=== PATIENT | female | born 1970 | race Caucasian/White ===

== ENCOUNTER 2018-09-23 10:07 | Inpatient (IN) | payer OTHER ==
[2018-09-23 11:55] LABS: ADD MAN DIFF? NO
[2018-09-23 12:00] LABS: BASOPHILS % 0.3 % (0.0-2.0); EOSINOPHILS # 0.1 10^3/ul (0.0-0.5); HEMATOCRIT 36.9 % (37.0-47.0); HEMOGLOBIN 12.5 g/dl (12.0-16.0); LYMPHOCYTES # 2.7 10^3/ul (0.8-2.9); LYMPHOCYTES % 34.9 % (15.0-51.0); MEAN CORPUSCULAR HEMOGLOBIN 32.6 pg (29.0-33.0); MEAN CORPUSCULAR HGB CONC 33.9 g/dl (32.0-37.0); MEAN CORPUSCULAR VOLUME 96.1 fl (82.0-101.0); MEAN PLATELET VOLUME 9.1 fl (7.4-10.4); MONOCYTE # 0.4 10^3/ul (0.3-0.9); MONOCYTES % 5.2 % (0.0-11.0); NEUTROPHIL # 4.5 10^3/ul (1.6-7.5); NEUTROPHILS % 58.3 % (39.0-77.0); PLATELET COUNT 273 10^3/UL (140-415); RED BLOOD COUNT 3.84 10^6/ul (4.20-5.40)
[2018-09-23 12:00] LABS: WHITE BLOOD COUNT 7.7 10^3/ul (4.8-10.8)
[2018-09-23 12:28] LABS: ALANINE AMINOTRANSFERASE 27 IU/L (13-69); ALKALINE PHOSPHATASE 55 IU/L (42-121); ANION GAP 7 (5-13); ASPARTATE AMINO TRANSFERASE 25 IU/L (15-46); BILIRUBIN,INDIRECT 1.2 mg/dl (0-1.1); BILIRUBIN,TOTAL 1.2 mg/dl (0.2-1.3); BLOOD UREA NITROGEN 13 mg/dl (7-20); CALCIUM 9.2 mg/dl (8.4-10.2); CARBON DIOXIDE 26 mmol/L (21-31); CHLORIDE 107 mmol/L (97-110); CREATININE 0.61 mg/dl (0.44-1.00); Estimated GFR > 60 mL/min (>60); GLUCOSE 101 mg/dl (70-220); SODIUM 140 mmol/L (135-144)
[2018-09-23 12:31] LABS: INR 0.92; PROTIME 12.5 Sec (11.9-14.9)
[2018-09-23 12:32] LABS: PARTIAL THROMBOPLASTIN TIME 27.2 Sec (23.0-35.0)
[2018-09-23] MEDS ORDERED: ROPIVACAINE 0.5 % 30 ML VIAL (13:02)
[2018-09-23] MEDS ORDERED: MIDAZOLAM 1 MG/ML 2 ML INJ (13:22)
[2018-09-23] MEDS ORDERED: PROPOFOL 20 ML (13:22)
[2018-09-23] MEDS ORDERED: CEFAZOLIN 1 GM INJ (13:22)
[2018-09-23] MEDS ORDERED: ONDANSETRON 4 MG INJ ×2 (13:23→15:18)
[2018-09-23] MEDS ORDERED: METOCLOPRAMIDE 10 MG INJ (13:23)
[2018-09-23] MEDS: CEFAZOLIN 2 GM/50 ML (PMX) 50 ML IVPB ×2 (13:39→21:12)
[2018-09-23] MEDS ORDERED: HYDROmorphONE 2 MG/ML SYG (13:46)
[2018-09-23] MEDS: POLYMYXIN/BACITRACIN 1L IRRIG IRR ×2 (13:49→15:00)
[2018-09-23] MEDS ORDERED: EPHEDrine 25 MG/5 ML SYG (14:04)
[2018-09-23] MEDS ORDERED: ROCURONIUM 50 MG INJ ×2 (14:04→14:11)
[2018-09-23] MEDS ORDERED: KETOROLAC 30 MG INJ (14:57)
[2018-09-23] MEDS: BUPIVACAINE 0.5% (SDV) 30 ML INJ (14:59)
[2018-09-23] MEDS ORDERED: CEFAZOLIN 2 GM/50 ML (PMX) 50 ML IVPB (15:00)
[2018-09-23] MEDS ORDERED: MEPERIDINE 25 MG INJ (15:18)
[2018-09-23] MEDS ORDERED: FENTAnyl 50 MCG/ML VIAL (15:18)
[2018-09-23] MEDS: FENTAnyl 50 MCG/ML VIAL IV ×3 (15:26→16:13)
[2018-09-23] MEDS: MEPERIDINE 25 MG INJ IV (15:26)
[2018-09-23] MEDS: ONDANSETRON 4 MG INJ IV (15:26)
[2018-09-23 15:28] LABS: ADD MAN DIFF? NO
[2018-09-23] MEDS: SOD CHLORIDE 0.9% 1,000 ML IV (15:29)
[2018-09-23 15:30] LABS: WHITE BLOOD COUNT 10.9 10^3/ul (4.8-10.8)
[2018-09-23 15:30] LABS: BASOPHILS % 0.2 % (0.0-2.0); EOSINOPHILS # 0.1 10^3/ul (0.0-0.5); EOSINOPHILS % 0.8 % (0.0-7.0); HEMATOCRIT 37.9 % (37.0-47.0); HEMOGLOBIN 12.4 g/dl (12.0-16.0); LYMPHOCYTES # 3.3 10^3/ul (0.8-2.9); LYMPHOCYTES % 30.6 % (15.0-51.0); MEAN CORPUSCULAR HEMOGLOBIN 32.5 pg (29.0-33.0); MEAN CORPUSCULAR HGB CONC 32.7 g/dl (32.0-37.0); MEAN CORPUSCULAR VOLUME 99.2 fl (82.0-101.0); MEAN PLATELET VOLUME 9.2 fl (7.4-10.4); MONOCYTE # 0.6 10^3/ul (0.3-0.9); MONOCYTES % 5.1 % (0.0-11.0); NEUTROPHIL # 6.9 10^3/ul (1.6-7.5); PLATELET COUNT 269 10^3/UL (140-415); RED BLOOD COUNT 3.82 10^6/ul (4.20-5.40)
[2018-09-23] MEDS ORDERED: DIPHENHYDRAMINE 50 MG INJ IV (15:30)
[2018-09-23] MEDS ORDERED: EPHEDrine 25 MG/5 ML SYG IV (15:30)
[2018-09-23] MEDS ORDERED: FENTAnyl 50 MCG/ML VIAL IV (15:30)
[2018-09-23] MEDS ORDERED: HYDROmorphONE 1 MG/5 ML IV SYRINGE IV (15:30)
[2018-09-23] MEDS: HYDROmorphONE 1 MG/5 ML IV SYRINGE IV ×3 (15:42→16:14)
[2018-09-23 15:49] LABS: ALANINE AMINOTRANSFERASE 26 IU/L (13-69); ALBUMIN 3.6 g/dl (3.3-4.9); ALBUMIN/GLOBULIN RATIO 0.94; ALKALINE PHOSPHATASE 53 IU/L (42-121); ANION GAP 8 (5-13); ASPARTATE AMINO TRANSFERASE 24 IU/L (15-46); BILIRUBIN,INDIRECT 0.8 mg/dl (0-1.1); BILIRUBIN,TOTAL 0.8 mg/dl (0.2-1.3); BLOOD UREA NITROGEN 12 mg/dl (7-20); CARBON DIOXIDE 24 mmol/L (21-31); CHLORIDE 110 mmol/L (97-110); Estimated GFR > 60 mL/min (>60); GLUCOSE 114 mg/dl (70-220); POTASSIUM 3.8 mmol/L (3.5-5.1); SODIUM 142 mmol/L (135-144); TOTAL PROTEIN 7.4 g/dl (6.1-8.1)
[2018-09-23 15:54] LABS: CALCIUM 8.3 mg/dl (8.4-10.2)
[2018-09-23] MEDS ORDERED: DOCUSATE SODIUM 100 MG CAP PO (17:00)
[2018-09-23] MEDS: LACTATED RINGER'S 1,000 ML IV (17:22)
[2018-09-23] MEDS: morphine 2 MG INJ IV (17:23)
[2018-09-23] MEDS: HYDROCODONE/APAP (5/325) TAB PO (18:20)
[2018-09-23] MEDS: GABAPENTIN 300 MG CAP PO (20:57)
[2018-09-23] MEDS: DOCUSATE SODIUM 100 MG CAP PO (20:58)
[2018-09-23] MEDS: morphine 4 MG/ML VIAL IV (21:03)
[2018-09-23] MEDS: DULOXETINE 30 MG CAP DR PO (21:06)
[2018-09-24] MEDS: morphine 4 MG/ML VIAL IV ×3 (00:19→06:32)
[2018-09-24] MEDS: LACTATED RINGER'S 1,000 ML IV ×3 (00:59→17:26)
[2018-09-24] MEDS: HYDROCODONE/APAP (5/325) TAB PO ×2 (01:11→07:35)
[2018-09-24] MEDS: ACETAMINOPHEN 325 MG TAB PO (03:02)
[2018-09-24] MEDS: CEFAZOLIN 2 GM/50 ML (PMX) 50 ML IVPB ×2 (04:31→13:09)
[2018-09-24 05:40] LABS: ADD MAN DIFF? NO
[2018-09-24 05:43] LABS: BASOPHILS % 0.1 % (0.0-2.0); EOSINOPHILS # 0.1 10^3/ul (0.0-0.5); EOSINOPHILS % 0.9 % (0.0-7.0); HEMATOCRIT 33.9 % (37.0-47.0); HEMOGLOBIN 10.9 g/dl (12.0-16.0); LYMPHOCYTES # 2.5 10^3/ul (0.8-2.9); LYMPHOCYTES % 30.5 % (15.0-51.0); MEAN CORPUSCULAR HGB CONC 32.2 g/dl (32.0-37.0); MEAN CORPUSCULAR VOLUME 99.4 fl (82.0-101.0); MEAN PLATELET VOLUME 9.6 fl (7.4-10.4); MONOCYTE # 0.6 10^3/ul (0.3-0.9); MONOCYTES % 6.9 % (0.0-11.0); NEUTROPHILS % 61.4 % (39.0-77.0); PLATELET COUNT 272 10^3/UL (140-415); RED BLOOD COUNT 3.41 10^6/ul (4.20-5.40); RED CELL DISTRIBUTION WIDTH 14.2 % (11.5-14.5)
[2018-09-24 05:43] LABS: WHITE BLOOD COUNT 8.1 10^3/ul (4.8-10.8)
[2018-09-24 06:41] LABS: ALANINE AMINOTRANSFERASE 27 IU/L (13-69); ALBUMIN 3.4 g/dl (3.3-4.9); ALKALINE PHOSPHATASE 45 IU/L (42-121); ANION GAP 7 (5-13); ASPARTATE AMINO TRANSFERASE 28 IU/L (15-46); BILIRUBIN,INDIRECT 1.4 mg/dl (0-1.1); BILIRUBIN,TOTAL 1.4 mg/dl (0.2-1.3); BLOOD UREA NITROGEN 12 mg/dl (7-20); CALCIUM 8.2 mg/dl (8.4-10.2); CARBON DIOXIDE 27 mmol/L (21-31); CHLORIDE 106 mmol/L (97-110); CREATININE 0.61 mg/dl (0.44-1.00); Estimated GFR > 60 mL/min (>60); GLUCOSE 106 mg/dl (70-220); SODIUM 140 mmol/L (135-144); TOTAL PROTEIN 6.8 g/dl (6.1-8.1)
[2018-09-24] MEDS ORDERED: DULOXETINE 30 MG CAP DR PO (09:00)
[2018-09-24] MEDS: ONDANSETRON 4 MG INJ IV (09:24)
[2018-09-24] MEDS: KETOROLAC 30 MG INJ IV ×2 (09:53→15:31)
[2018-09-24] MEDS: GABAPENTIN 300 MG CAP PO ×3 (09:54→20:19)
[2018-09-24] MEDS: DOCUSATE SODIUM 100 MG CAP PO ×2 (09:55→20:19)
[2018-09-24] MEDS: HYDROmorphONE 0.5 MG/0.5 ML SYG IV ×3 (13:10→21:12)
[2018-09-24] MEDS: DULOXETINE 30 MG CAP DR PO (20:19)
[2018-09-25] MEDS: KETOROLAC 30 MG INJ IV ×3 (01:15→16:52)
[2018-09-25] MEDS: LACTATED RINGER'S 1,000 ML IV ×3 (03:42→22:31)
[2018-09-25] MEDS: HYDROmorphONE 0.5 MG/0.5 ML SYG IV ×5 (04:15→21:31)
[2018-09-25] MEDS: GABAPENTIN 300 MG CAP PO ×3 (08:29→21:13)
[2018-09-25] MEDS: DOCUSATE SODIUM 100 MG CAP PO ×2 (08:29→21:13)
[2018-09-25] MEDS: DULOXETINE 30 MG CAP DR PO (21:13)
[2018-09-25] MEDS: HYDROCODONE/APAP (5/325) TAB PO (22:28)
[2018-09-26] MEDS: HYDROCODONE/APAP (5/325) TAB PO ×2 (05:20→11:39)
[2018-09-26] MEDS: KETOROLAC 30 MG INJ IV (06:18)
[2018-09-26] MEDS: LACTATED RINGER'S 1,000 ML IV (07:24)
[2018-09-26] MEDS: GABAPENTIN 300 MG CAP PO ×2 (09:00→12:02)
[2018-09-26] MEDS: HYDROmorphONE 0.5 MG/0.5 ML SYG IV (09:00)
[2018-09-26] MEDS: DOCUSATE SODIUM 100 MG CAP PO (09:00)
== END 2018-09-26 13:00 | disposition home or self-care (01) | DRG 337 ==
LOC: REC 10:07 → MS1 16:50
PROC: 0WUF0JZ Supplement Abdominal Wall with Synthetic Substitute, Open Approach (ICD-10-PCS; principal; 2018-09-23 13:23)
PROC: 0DNW0ZZ Release Peritoneum, Open Approach (ICD-10-PCS; 2018-09-23 13:23)
PROC: 0WUF0JZ Supplement Abdominal Wall with Synthetic Substitute, Open Approach (ICD-10-PCS; 2018-09-23 13:23)
PROC: 0KXL0ZZ Transfer Left Abdomen Muscle, Open Approach (ICD-10-PCS; 2018-09-23 13:23)
PROC: 0KXK0ZZ Transfer Right Abdomen Muscle, Open Approach (ICD-10-PCS; 2018-09-23 13:23)
DX: K43.0 Incisional hernia with obstruction, without gangrene (principal); D64.9 Anemia, unspecified; K66.0 Peritoneal adhesions (postprocedural) (postinfection); M79.7 Fibromyalgia; K42.0 Umbilical hernia with obstruction, without gangrene; Z87.891 Personal history of nicotine dependence
CPT/HCPCS: 80053; 85025; 85610; 85730

== ENCOUNTER 2018-10-06 16:03 | Emergency (ER) | payer OTHER ==
[2018-10-06 16:40] LABS: URINE PH (Dip) POC 5.5 (5.0-8.5)
[2018-10-06 16:40] LABS: URINE BLOOD (Dip) POC 2+ (NEGATIVE); URINE GLUCOSE (Dip) POC Negative (NEGATIVE); URINE KETONES (Dip) POC Negative (NEGATIVE); URINE LEUKOCYTE EST (Dip) POC Trace (NEGATIVE); URINE NITRITE (Dip) POC Negative (NEGATIVE); URINE TOTAL PROTEIN POC Trace (NEGATIVE)
[2018-10-06 16:50] LABS: ADD MAN DIFF? NO
[2018-10-06 16:52] LABS: BASOPHILS % 0.4 % (0.0-2.0); EOSINOPHILS # 0.2 10^3/ul (0.0-0.5); EOSINOPHILS % 2.4 % (0.0-7.0); HEMATOCRIT 35.4 % (37.0-47.0); HEMOGLOBIN 11.9 g/dl (12.0-16.0); LYMPHOCYTES # 2.8 10^3/ul (0.8-2.9); LYMPHOCYTES % 36.6 % (15.0-51.0); MEAN CORPUSCULAR HEMOGLOBIN 32.2 pg (29.0-33.0); MEAN CORPUSCULAR HGB CONC 33.6 g/dl (32.0-37.0); MEAN CORPUSCULAR VOLUME 95.7 fl (82.0-101.0); MEAN PLATELET VOLUME 8.6 fl (7.4-10.4); MONOCYTE # 0.5 10^3/ul (0.3-0.9); MONOCYTES % 6.4 % (0.0-11.0); NEUTROPHIL # 4.1 10^3/ul (1.6-7.5); PLATELET COUNT 493 10^3/UL (140-415); RED CELL DISTRIBUTION WIDTH 13.4 % (11.5-14.5)
[2018-10-06 16:52] LABS: WHITE BLOOD COUNT 7.6 10^3/ul (4.8-10.8)
[2018-10-06] MEDS: KETOROLAC 30 MG INJ IV (16:52)
[2018-10-06 17:07] LABS: ALANINE AMINOTRANSFERASE 24 IU/L (13-69); ALBUMIN 4.2 g/dl (3.3-4.9); ALKALINE PHOSPHATASE 61 IU/L (42-121); ANION GAP 11 (5-13); ASPARTATE AMINO TRANSFERASE 24 IU/L (15-46); BILIRUBIN,INDIRECT 0.4 mg/dl (0-1.1); BILIRUBIN,TOTAL 0.4 mg/dl (0.2-1.3); BLOOD UREA NITROGEN 19 mg/dl (7-20); CALCIUM 9.5 mg/dl (8.4-10.2); CARBON DIOXIDE 24 mmol/L (21-31); CHLORIDE 103 mmol/L (97-110); CREATININE 0.68 mg/dl (0.44-1.00); Estimated GFR > 60 mL/min (>60); GLUCOSE 123 mg/dl (70-220); LIPASE 69 U/L (23-300); POTASSIUM 4.1 mmol/L (3.5-5.1); SODIUM 138 mmol/L (135-144); TOTAL PROTEIN 8.4 g/dl (6.1-8.1)
[2018-10-06] MEDS: HYDROCODONE/APAP (10/325) TAB PO (18:48)
== END 2018-10-06 19:08 | disposition home or self-care (01) ==
LOC: E/R 16:03
DX: G89.18 Other acute postprocedural pain (principal); R31.9 Hematuria, unspecified; D64.9 Anemia, unspecified; Z85.72 Personal history of non-Hodgkin lymphomas
CPT/HCPCS: 36415; 76705; 80053; 81003; 81025; 83690; 85025; 96374; 99285-25